=== PATIENT | female | born 1990 | race Caucasian/White ===

== ENCOUNTER 2016-06-17 23:24 | Emergency (ER) | payer BC ==
[~2016-06-17] VITALS: Ht 160 cm; Wt 68.0 kg
[2016-06-18] MEDS ORDERED: IBUPROFEN600 MG ORAL (00:30)
--- NOTE | 2016-06-18 00:31 | Emergency Room Report ---
History of Present Illness General Chief Complaint: Head Injury Source: Patient Present Illness HPI Is a 25-year-old female with no past medical history. She presents with chief complaint of head injury. Onset was acute. Occurred about an hour ago. She opened the cabinet door in the kitchen and the cabinet door fell and hit her on the head. No loss of consciousness. Some pain over that area. She felt low dizzy. Able to drive here without difficulty. No other complaint. No nausea no vomiting. Allergies: Coded Allergies: No Known Allergies (Unverified , 06/17/16) Patient History Past Medical History: none, see triage record, old chart reviewed Past Surgical History: none Pertinent Family History: none Social History: Denies: smoking Last Menstrual Period: 3 weeks ago Now: No : 0 Para: 0 Immunizations: other Reviewed Nursing Documentation: PMH: Agreed, PSxH: Agreed Nursing Documentation-PM Past Medical History: No Stated History Review of Systems Eye: Denies: blurred vision, eye pain ENT: Denies: ear pain, nose congestion, throat swelling Respiratory: Denies: cough, shortness of breath Cardiovascular: Denies: chest pain, palpitations Gastrointestinal: Denies: abdominal pain, diarrhea, nausea, vomiting Musculoskeletal: Denies: back pain, joint pain Skin: Denies: rash Neurological: Reports: headache, Denies: numbness Endocrine: Denies: increased thirst, increased urine Hematologic/Lymphatic: Denies: easy bruising All Other Systems: negative except mentioned in HPI Physical Exam Vital Signs Date Time Temp Pulse Resp B/P Pulse Ox O2 Delivery O2 Flow Rate FiO2 06/17/16 23:34 98.2 83 16 165/90 98 Room Air vitals with hypertension Sp02 EP Interpretation: reviewed, normal General Appearance: well appearing, no apparent distress, alert Head: normocephalic, atraumatic, other - Mild tenderness over the vertex Eyes: bilateral eye EOMI, bilateral eye PERRL ENT: hearing grossly normal, normal pharynx Neck: full range of motion, supple, no meningismus Respiratory: chest non-tender, lungs clear, normal breath sounds Cardiovascular #1: regular rate, rhythm, no murmur Gastrointestinal: normal bowel sounds, non tender, no mass, no organomegaly, no bruit, non-distended Musculoskeletal: back normal, gait/station normal, normal range of motion Psychiatric: mood/affect normal Skin: warm/dry Medical Decision Making Diagnostic Impression: Primary Impression: Acute head injury Qualified Codes: S09.90XA - Unspecified injury of head, initial encounter ER Course patient with minor head injury. No bleed or fracture. We'll discharge home. CT/MRI/US Diagnostic Results CT/MRI/US Diagnostic Results : Imaging Test Ordered: CT head Impression read by radiologist. Negative. Last Vital Signs Date Time Temp Pulse Resp B/P Pulse Ox O2 Delivery O2 Flow Rate FiO2 06/17/16 23:34 98.2 83 16 165/90 98 Room Air Status: improved Disposition: HOME, SELF-CARE Condition: Stable Scripts Ibuprofen* (MOTRIN*) 600 Mg Tablet 600 MG ORAL THREE TIMES A DAY, #30 TAB 0 Refills Prov: TRACY GRAJEDA M.D. 06/18/16 Referrals: NON PHYSICIAN (PCP) Patient Instructions: HEAD INJURY, No Wake-Up (Adult) Additional Instructions: Followup with your Dr. in 7 days as needed. Return if worse. TRACY GRAJEDA M.D. Jun 18, 2016 00:31
[2016-06-18 00:45] VITALS: BP 122/70
--- NOTE | 2016-06-18 08:52 | Diagnostic Imaging Report ---
Indications: Head trauma, pain Technique: Continuous helical CT imaging of the brain was performed with automatic exposure control on a Siemens sensation [address] scanner. Axial and coronal images were reconstructed at 5 mm slice thickness and interval. CTDI volume(s): 70 mGy Total DLP: 1347 mGy-cm Findings: Progress Comparison: None. Artifact from right sided earrings degrades images and limits evaluation.. No evidence of mass or hemorrhage, other attenuation abnormality, mass effect, midline shift, hydrocephalus or increased intracranial pressure. Bone window images are unremarkable. Visualized paranasal sinuses and mastoid air cells are clear. Subcentimeter calcified nodules are present in the scalp vertex. IMPRESSION: Small calcified scalp nodules, nonspecific, very likely benign. Most common etiologies include trichilemmal cysts (wens) versus epidermal inclusion cysts. Otherwise negative noncontrast CT scan of the brain , with limitation as described--no overt evidence of acute injury. This correlates with [facility] preliminary report. The CT scanner at [facility] is accredited by the [employer] and the scans are performed using protocols designed to limit radiation exposure to as low as reasonably achievable to attain images of sufficient resolution adequate for diagnostic evaluation.
== END 2016-06-18 00:47 | disposition home or self-care (01) ==
LOC: EMR 23:51
DX: S09.8XXA Other specified injuries of head, initial encounter (principal); W20.8XXA Other cause of strike by thrown, projected or falling object, initial encounter; Y92.89 Other specified places as the place of occurrence of the external cause
CPT/HCPCS: 70450; 99284